=== PATIENT | male | born 1970 | race Asian ===

== ENCOUNTER 2019-08-04 08:48 | Emergency (ER) | payer OTHER ==
[~2019-08-04] VITALS: Ht 182.9 cm; Wt 97.1 kg
[2019-08-04 08:59] VITALS: Ht 182.9 cm; Wt 97.1 kg
[2019-08-04 10:53] LABS: BASOPHIL % 0.3 % (0-2); PLATELET COUNT 278 x10^3mcL (130-400); RED CELL DISTRIBUTION WIDTH 13.3 % (11.5-14.5)
[2019-08-04 11:11] LABS: CARBON DIOXIDE 25.2 mmol/L (21-32); CHLORIDE SERUM 102 mmol/L (98-107); GLUCOSE SERUM 134 mg/dL (74-106); POTASSIUM SERUM 3.8 mmol/L (3.5-5.1); SODIUM SERUM 137 mmol/L (136-145)
[2019-08-04 11:12] LABS: ALBUMIN 4.2 g/dL (3.4-5.0); ALKALINE PHOSPHATASE 94 U/L (46-116); ALT/SGPT 85 U/L (16-63); AST/SGOT 36 U/L (15-37); BILIRUBIN TOTAL 0.8 mg/dL (0.20-1.00); C REACTIVE PROTEIN 1.2 mg/dL (<=0.9); CALCIUM 8.9 mg/dL (8.5-10.1); CREATININE SERUM 1.1 mg/dL (0.7-1.3); GFR1 > 60 mL/min; TOTAL PROTEIN, SERUM 8.8 g/dL (6.4-8.2)
[2019-08-04 11:56] LABS: ERYTHROCYTE SED RATE 39 mm/hr (0-15)
[2019-08-04 12:52] VITALS: BP 142/94
== END 2019-08-04 12:52 | disposition home or self-care (01) ==
LOC: ED 08:48
PROVIDERS: Specialist
DX: K11.20 Sialoadenitis, unspecified (principal); R21 Rash and other nonspecific skin eruption; E78.00 Pure hypercholesterolemia, unspecified
CPT/HCPCS: 36415; 86308; 87804